=== PATIENT | female | born 1955 | race Caucasian/White ===

== ENCOUNTER → 2018-02-17 | Outpatient (CLI) | payer BC, OTHER ==
[~2018-02-17] VITALS: Ht 157.5 cm; Wt 58.1 kg
[~2018-02-17] MED LIST: ADVAIR 100-501 EACH INH; ESTRADIOL 1 MG T1 M1 PO; SYNTHROID125 MC1 PO; VENTOLIN HFA 1818 GM INH; ZYRTEC10 M5 PO
--- NOTE | ~2018-02-17 | P ---
[facility] [place] [address] PROCEDURE REPORT Name: VÍCTORAMINTA Kapoor Room #: REG Baljeet Junior#: [id number] Admission: 02/17/18 Attend Phys: Woo Leigh Discharge: Date of : 53 Report #: [id number] THIS REPORT FOR: //name// CC: NGUYEN Ag MD DATE OF SERVICE: 02/17/2018 PROCEDURE PERFORMED: Colonoscopy. HISTORY OF PRESENT ILLNESS: The patient is a 62-year-old female who presents today for routine screening colonoscopy. She denies any symptoms. No family history of colon cancer. DESCRIPTION OF PROCEDURE: The risks and benefits of the procedure were explained to the patient, those risks including but not limited to bleeding, perforation and the risk of sedation. She understood these risks and gave informed consent. Sedation was given using propofol per anesthesia. Next, a digital rectal exam was initially performed, which was normal. Next, using a standard Fujinon colonoscope, the scope was placed in the patient's anus and advanced under direct vision to the cecum. The overall prep was excellent. The cecum and ileocecal valve were normal in appearance. The ascending, transverse, descending and sigmoid colon were all normal. The rectal mucosa was normal. On retroflexion, no abnormalities were noted. Scope was then withdrawn and the procedure terminated. The patient tolerated the procedure well. IMPRESSION: Normal colonoscopy. RECOMMENDATIONS: Repeat colonoscopy in 10 years. Thank you for allowing me to participate in her care. <ELECTRONICALLY SIGNED> By: Woo Goncalves MD 02/22/18 0904 [id number] Woo Goncalves MD /nt
== END ==
LOC: GI 08:08
DX: Z12.11 Encounter for screening for malignant neoplasm of colon (principal); E03.9 Hypothyroidism, unspecified; J45.909 Unspecified asthma, uncomplicated; Z90.710 Acquired absence of both cervix and uterus; Z90.49 Acquired absence of other specified parts of digestive tract; Z98.890 Other specified postprocedural states; Z79.899 Other long term (current) drug therapy
CPT/HCPCS: 62110; 62900

== ENCOUNTER → 2020-08-05 | Outpatient (CLI) | payer OTHER | LOC: LAB 09:44 | PROVIDERS: ATTEND Family Medicine | DX: Z20.828 Contact with and (suspected) exposure to other viral communicable diseases (principal) ==